=== PATIENT | male | born 1965 | race Caucasian/White ===

== ENCOUNTER 2022-12-24 18:52 | Emergency (ER) | payer MEDICARE, MEDICAID, SELFPAY ==
--- NOTE | 2022-12-24 18:55 | XRR_ITS ---
PROCEDURE INFORMATION: Exam: XR Chest Exam date and time: 12/24/2022 7:13 PM Age: 57 years old Clinical indication: Prior surgery; Surgery date: 6+ months; Patient HX: C/O chest pain. HX of bypass surgery 2 years ago; Additional info: Cp TECHNIQUE: Imaging protocol: Radiologic exam of the chest. Views: 1 view. COMPARISON: No relevant prior studies available. FINDINGS: Lungs: Unremarkable. No consolidation. Pleural spaces: Unremarkable. No pleural effusion. No pneumothorax. Heart/Mediastinum: Unremarkable. No cardiomegaly. Bones/joints: Median sternotomy wires. XR/XR chest 1V portable [id number] IMPRESSION: No acute findings.
[2022-12-24 19:01] VITALS: PULSE 77; RESP 22; TEMP 36.7; O2SAT 100
[2022-12-24 19:21] LABS: Basophils # 0.1 10^3/uL (0.0-0.1); Basophils % 0.5 %; Eosinophils # 0.7 10^3/uL (0.0-0.8); Eosinophils % 7.2 %; Hematocrit 50.4 % (42.0-52.0); Hemoglobin 16.4 g/dL (11.7-16.6); Lymphocytes # 2.4 10^3/uL (0.8-4.8); Lymphocytes % 24.5 %; Mean Corpuscular HGB Conc 32.5 g/dL (30.0-36.0); Mean Corpuscular Hemoglobin 30.7 pg (28.0-34.0); Mean Corpuscular Volume 94.4 fl (80-94); Mean Platelet Volume 10.3 fL (7.4-10.4); Monocytes # 0.5 10^3/uL (0.2-0.9); Monocytes % 5.4 %; Neutrophils # 5.98 10^3/uL (1.8-7.7); Neutrophils % 62.2 %; Nucleated Red Blood Cells % 0 %; Platelet Count 179 10^3/cmm (130-400); Red Blood Count 5.34 10^6/uL (4.1-5.3); Red Cell Distribution Width 12.2 % (12.1-15.1); White Blood Count 9.6 10^3/uL (4.0-10.0)
--- NOTE | 2022-12-24 19:21 | ECG_ITS ---
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 Measurements Intervals [place] Rate: 78 P: 73 OR: 148 QRS: -49 QRSD: 122 T: 65 QT: 373 QTc: 425 Interpretive Statements SINUS RHYTHM WITH OCCASIONAL VENTRICULAR PREMATURE COMPLEXES POSSIBLE LEFT ATRIAL ENLARGEMENT [-0.1mV P-WAVE IN V1/V2] POSSIBLE ANTERIOR MYOCARDIAL INFARCTION , OF INDETERMINATE AGE [30 ms Q WAVE IN V3/V4, OR R < 0.2 mV IN V4] INFERIOR MYOCARDIAL INFARCTION , PROBABLY OLD [40+ ms Q WAVE AND/OR ST/T ABNORMALITY IN II/aVF] No previous ECG available for comparison Electronically Signed On 12-24-2022 21:38:21 CDT by Nora Vega M.D. [id number]
--- NOTE | 2022-12-24 19:28 | W.ED.CHESTPA ---
HPI - Chest Pain General: Chief Complaint: Chest Pain Stated Complaint: Sob\Chest Tightness\ByPass PT Time Seen by Provider: 12/24/22 19:24 Source: patient Limitations: no limitations History of Present Illness: This 57-year-old male with a past history of coronary artery disease (status post quadruple bypass 2 years ago) and 6 stents, presents to the ER with intermittent chest pain that has been going on for 3 days. Pain typically last for about 2 seconds and resolves spontaneously. It could be brought on by movement of the right shoulder or the left shoulder. The pain does not radiate. Patient denies fever, shortness of breath, nausea or vomiting. He has a history of high blood pressure but stopped taking his medications for 6 months because he could not afford it. However on the first of this month, he restarted his medications. Here in the ER, his blood pressures are elevated. He does not have a way of monitoring his blood pressures at home. He appears clinically stable. Review of Systems Const: Denies: chills, body aches or change in appetite Eyes: Denies: change in vision or eye discharge ENMT: Denies: throat pain, dental pain or nasal discharge Card: Reports: chest pain : Denies: dysuria Musc: Denies: neck pain or back pain Neuro: Denies: headache(s) or weakness in extremities Psych: Denies: depression Tejas/Lymph: Denies: easy bruising All/Imm: Denies: urticaria, tongue swelling or facial swelling Physical Exam Const: COMMON NORMALS: no acute distress, patient oriented x3, no limitations and alert HENMT: COMMON NORMALS: normocephalic HEAD & SCALP: normocephalic Eye: COMMON NORMALS: EOMs intact bilaterally Neck/C-Spine: COMMON NORMALS: full ROM and supple Chest: OTHER: Well-healed mid sternotomy scar from CABG. Tenderness on palpation of the left anterior chest wall. Patient notes pain has been there for months. Resp: COMMON NORMALS: normal respiratory effort, No retractions, No use of accessory muscles and clear to auscultation bilaterally AUSCULTATION: clear to auscultation bilaterally Cardio: COMMON NORMALS: regular rate, regular rhythm and No murmurs present (Cardio) RATE: regular rate RHYTHM: regular rhythm GI: COMMON NORMALS: Normal to inspection, nondistended, normoactive bowel sounds present and non-tender : COMMON NORMALS: Yes no CVA tenderness BLADDER/KIDNEY EXAM: Yes no CVA tenderness Back/Pelvis: COMMON NORMALS: no CVA tenderness and no thoracic nor lumbar tenderness Extremity: GENERAL: Yes normal exam except as noted Neuro: COMMON NORMALS: patient oriented x3 and no focal motor deficits SENSORIUM/ORIENTATION: Yes alert Psych: COMMON NORMALS: mental status grossly normal and cooperative Course Vital Signs: Vital signs: Vital Signs Temperature 98.1 F 12/24/22 19:01 Pulse Rate 67 12/24/22 21:31 Respiratory Rate 13 12/24/22 21:31 Blood Pressure 153/95 12/24/22 21:31 Pulse Oximetry 99 12/24/22 21:31 Oxygen Delivery Me thod Room Air 12/24/22 21:31 MDM - Chest Pain Medical Decision Making Medical decision making: History as above. While awaiting completion of work-up, patient stated that he wanted to leave. He could not wait any longer. He was made aware of the risks involved with his decision to leave AGAINST MEDICAL ADVICE. Patient is competent and understands the risks. So, he was allowed to sign out AGAINST MEDICAL ADVICE. He could return if he changes his mind. Lab Data 12/24/22 19:14 12/24/22 19:14 Radiology Impressions Chest X-Ray 12/24/22 18:55 IMPRESSION: No acute findings. Laboratory Results WBC 9.6 10^3/uL (4.0-10.0) 12/24/22 19:14 RBC 5.34 10^6/uL (4.1-5.3) H 12/24/22 19:14 Hgb 16.4 g/dL (11.7-16.6) 12/24/22 19:14 Hct 50.4 % (42.0-52.0) 12/24/22 19:14 MCV 94.4 fl (80-94) H 12/24/22 19:14 MCH 30.7 pg (28.0-34.0) 12/24/22 19:14 MCHC 32.5 g/dL (30.0-36.0) 12/24/22 19:14 RDW 12.2 % (12.1-15.1) 12/24/22 19:14 Plt Count 179 10^3/cmm (130-400) 12/24/22 19:14 MPV 10.3 fL (7.4-10.4) 12/24/22 19:14 Neut % (Auto) 62.2 % 12/24/22 19:14 Lymph % (Auto) 24.5 % 12/24/22 19:14 [place] % (Auto) 5.4 % 12/24/22 19:14 Eos % (Auto) 7.2 % 12/24/22 19:14 Baso % (Auto) 0.5 % 12/24/22 19:14 Neut # (Auto) 5.98 10^3/uL (1.8-7.7) 12/24/22 19:14 Lymph # (Auto) 2.4 10^3/uL (0.8-4.8) 12/24/22 19:14 [place] # (Auto) 0.5 10^3/uL (0.2-0.9) 12/24/22 19:14 Eos # (Auto) 0.7 10^3/uL (0.0-0.8) 12/24/22 19:14 Baso # (Auto) 0.1 10^3/uL (0.0-0.1) 12/24/22 19:14 Nucleated RBC % (auto) 0 % 12/24/22 19:14 Nucleated RBCs # 0.0 /100WBC 12/24/22 19:14 PT 12.80 SECONDS (12.1-14.9) 12/24/22 19:14 INR 0.93 (0.8-1.2) 12/24/22 19:14 Sodium 137 mmol/L (136-145) 12/24/22 19:14 Potassium 4.4 mmol/L (3.5-5.1) 12/24/22 19:14 Chloride 101 mmol/L (98-107) 12/24/22 19:14 Carbon Dioxide 25 mmol/L (22-29) 12/24/22 19:14 Anion Gap 15.4 (5-19) 12/24/22 19:14 BUN 21 mg/dL (6-20) H 12/24/22 19:14 Creatinine 0.9 mg/dL (0.7-1.2) 12/24/22 19:14 GFR Calculation 87.6 mL/min (90-130) L 12/24/22 19:14 Glucose 120 mg/dL (65-115) H 12/24/22 19:14 Calculated Osmolality 288 mOsm/kg (285-295) 12/24/22 19:14 Calcium 9.1 mg/dL (8.5-10.5) 12/24/22 19:14 Total Bilirubin 0.3 mg/dL (0.15-1.2) 12/24/22 19:14 AST 18 U/L (0-40) 12/24/22 19:14 ALT 24 U/L (0-41) 12/24/22 19:14 Alkaline Phosphatase 79 U/L (40-130) 12/24/22 19:14 Troponin T Baseline 14 ng/L (0-15) 12/24/22 19:14 Troponin T 120 Minute 16.14 ng/L (0-15) H 12/24/22 21:22 Delta Troponin T 2.14 ABS# (0-10) 12/24/22 21:22 NT-Pro-B Natriuret Pep 202 pg/mL (0-125) H 12/24/22 19:14 Total Protein 7.3 g/dL (6.6-8.7) 12/24/22 19:14 Albumin 4.2 g/dL (3.5-5.2) 12/24/22 19:14 Globulin 3.1 g/dL (1.3-4.6) 12/24/22 19:14 Urine Color Yellow (Yellow) 12/24/22 21:29 Urine Appearance Clear (CLEAR) 12/24/22 21: Urine pH 5 (5-7) 12/24/22 21:29 Ur Specific [place] 1.020 (1.005-1.030) 12/24/22 21: Urine Protein Neg (Negative) 12/24/22 21: Urine Glucose (UA) Norm (Normal) 12/24/22 21: Urine Ketones Negative (Negative) 12/24/22 21: Urine Blood Neg (Negative) 12/24/22 21: Urine Nitrate Negative (Negative) 12/24/22 21: Urine Bilirubin Neg (Negative) 12/24/22 21: Urine Urobilinogen Norm mg/dL (Negative) 12/24/22 21: Ur Leukocyte Esterase Negative (Negative) 12/24/22 21:29 Urine Opiates Screen Negative ng/mL (Negative) 12/24/22 21:29 Ur Barbiturates Screen Negative ng/mL (Negative) 12/24/22 21:29 Ur Phencyclidine Scrn Negative ng/mL (Negative) 12/24/22 21:29 Ur Amphetamines Screen Negative ng/mL (Negative) 12/24/22 21:29 U Benzodiazepines Scrn Negative ng/mL (Negative) 12/24/22 21:29 Urine Cocaine Screen Negative ng/mL (Negative) 12/24/22 21:29 U Marijuana (THC) Screen Positive ng/mL (Negative) H 12/24/22 21:29 EKG Data EKG 1: Interpretation: 1927 hrs.: Sinus rhythm, rate of 78, premature ventricular complexes, no acute STEMI. Discharge Plan Discharge Patient Disposition: Left Against Medical Advice Clinical Impression: Chest pain Condition: Stable Prescriptions: No Action metoprolol succinate 25 mg tablet extended release 24 hr PO nitroglycerin 0.4 mg tablet, sublingual 0.4 mg sublingual Q5M PRN (Reason: chest pain) Rx Instructions: up to 3 doses amlodipine 5 mg tablet PO clopidogrel 75 mg tablet PO atorvastatin 20 mg tablet PO Coding Level of Care Code ED Executive Producer for Julian Lazar
[2022-12-24 19:30] VITALS: BP 188/124; PULSE 73; RESP 21; O2SAT 97
[2022-12-24 19:34] LABS: INR 0.93 (0.8-1.2)
--- NOTE | 2022-12-24 19:37 | ECG_ITS ---
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 Measurements Intervals [place] Rate: 94 P: 83 IA: 157 QRS: -60 QRSD: 121 T: 57 QT: 361 QTc: 453 Interpretive Statements SINUS RHYTHM WITH OCCASIONAL VENTRICULAR PREMATURE COMPLEXES POSSIBLE LEFT ATRIAL ENLARGEMENT [-0.1mV P-WAVE IN V1/V2] POSSIBLE ANTERIOR MYOCARDIAL INFARCTION , OF INDETERMINATE AGE [30 ms Q WAVE IN V3/V4, OR R < 0.2 mV IN V4] INFERIOR MYOCARDIAL INFARCTION , PROBABLY OLD [40+ ms Q WAVE AND/OR ST/T ABNORMALITY IN II/aVF] INTERPRETATION BASED ON A DEFAULT AGE OF 40 YEARS No previous ECG available for comparison Electronically Signed On 12-24-2022 21:38:39 CDT by Nora Vega M.D. [id number]
[2022-12-24] MEDS: metoprolol tartrate 1 mg/1 mL SDV 5 mL 5 MG IVP (19:47)
[2022-12-24] MEDS: aspirin 81 mg Chew Tablet 324 MG PO (19:47)
[2022-12-24] MEDS: nitroglycerin 0.4 mg sublingual Tablet SUBLINGUAL (19:48)
[2022-12-24 19:53] LABS: Troponin(5th) Baseline 14 ng/L (0-15)
[2022-12-24 20:00] VITALS: BP 143/76; PULSE 70; RESP 20; O2SAT 95
[2022-12-24 20:02] LABS: Alanine Aminotransferase 24 U/L (0-41); Albumin Level 4.2 g/dL (3.5-5.2); Alkaline Phosphatase 79 U/L (40-130); Anion Gap 15.4 (5-19); Aspartate Amino Transferase 18 U/L (0-40); Blood Urea Nitrogen 21 mg/dL (6-20); Calcium 9.1 mg/dL (8.5-10.5); Carbon Dioxide 25 mmol/L (22-29); Chloride 101 mmol/L (98-107); Globulin 3.1 g/dL (1.3-4.6); Glomerular Filtration Rate 87.6 mL/min (90-130); Glucose 120 mg/dL (65-115); NT Pro B Type Natriuretic Pept 202 pg/mL (0-125); Osmolality Calculated 288 mOsm/kg (285-295); Potassium 4.4 mmol/L (3.5-5.1); Sodium 137 mmol/L (136-145); Total Bilirubin 0.3 mg/dL (0.15-1.2); Total Protein 7.3 g/dL (6.6-8.7)
[2022-12-24 21:31] VITALS: BP 153/95; PULSE 67; RESP 13; O2SAT 99
[2022-12-24 21:50] LABS: Add Urine Microscopic? NO; Charge for UA Resulting for Rev
[2022-12-24 21:52] LABS: Bilirubin Urine Neg (Negative); Blood Urine Neg (Negative); Glucose Urine UA Norm (Normal); Ketones Urine Negative (Negative); Leukocyte Esterase Urine Negative (Negative); Nitrate Urine Negative (Negative); Protein Urine Neg (Negative); Urine Appearance Clear (CLEAR); Urine Color Yellow (Yellow); Urobilinogen Urine Norm (Negative); pH Urine 5 (5-7)
[2022-12-24 21:59] LABS: Troponin 5 2HR 16.14 ng/L (0-15)
[2022-12-24 22:01] LABS: Amphetamines Screen Urine Negative (Negative); Barbiturates Screen Urine Negative (Negative); Benzodiazepines Screen Urine Negative (Negative); Cocaine Screen Urine Negative (Negative); Opiate Screen Urine Negative (Negative); PCP Screen Urine Negative (Negative); THC Screen Urine Positive (Negative)
[2022-12-24 22:05] LABS: Troponin 5 2HR Delta 2.14 ABS# (0-10)
--- NOTE | 2022-12-26 08:58 | DCPLANNER ---
staff training and development manager called director of casework services due to no primary care physician - no answer at this time, a voicemail was left for patient to return case management assistant phone call.
== END 2022-12-24 23:00 | disposition left against medical advice (07) ==
PROVIDERS: Emergency Medicine; Emergency Provider Family Medicine
DX: R07.9 Chest pain, unspecified (principal); Z53.21 Procedure and treatment not carried out due to patient leaving prior to being seen by health care provider; Z79.02 Long term (current) use of antithrombotics/antiplatelets
CPT/HCPCS: 36415; 71045; 80053; 80306; 81003; 83880; 84484; 85025; 85610; 93005; 96374; 99285; J3490